=== PATIENT | female | born 1975 | race Caucasian/White ===

== ENCOUNTER 2023-05-03 13:30 | Outpatient (CLI) | payer BC, SELFPAY ==
[2023-05-04 09:52] LABS: Chlamydia DNA Amplified* NOT DETECTED (No Detected); GC DNA Amplified* NOT DETECTED (No Detected)
== END 2023-05-03 13:31 | disposition home or self-care (01) ==
LOC: NFLDREF 13:37
PROVIDERS: Visit Provider Obstetrics & Gynecology
DX: N93.9 Abnormal uterine and vaginal bleeding, unspecified (principal); Z11.3 Encounter for screening for infections with a predominantly sexual mode of transmission
CPT/HCPCS: 87491; 87591

== ENCOUNTER 2023-06-26 06:05 | Day surgery (SDC) | payer BC, SELFPAY ==
[2023-06-26] MEDS: SODIUM CHLORIDE 0.9 % (FLUSH) 10 ML SYRINGE IVF (06:20)
[2023-06-26] MEDS: LACTATED RINGERS 1000 ML 1,000 ML 100 ML IV (06:20)
[2023-06-26 06:23] LABS: Ur HCG Qualitative* Negative (Negative)
[2023-06-26 06:28] VITALS: BP 138/92; PULSE 78; RESP 16; TEMP 36.6; O2SAT 96; BMI 23.3
--- NOTE | 2023-06-26 07:08 | P.GYNHP_ITS ---
REGISTERED MAIL CLERK: H&P: HPI Surgical History of Present Illness Time Seen by Provider: 07:00 Date Seen: 06/26/23 Last H&P: History & Physical 06/26/23 07:08 Narrative: Savana Burk is a 48 year old female seen in pre-op prior to planned IUD Removal, Hysteroscopy, Dilation and Curettage and Amaya Endometrial Ablation. Past medical history is notable for anxiety. She has no chest pain, dyspnea, nausea/vomiting, bowel or bladder concerns today. We discussed surgery in detail - including risks of increased vaginal bleeding (switching from mirena to Amaya ablation), abnormal vaginal discharge for several months, post-procedure bleeding, infection, damage to surrounding structures, uterine perforation and post-op pain. Written consent obtained. Endometrial biopsy on 05/03/2023: Scant atrophic endometrium, no hyperplasia/atypia/malignancy Pap on 05/03/2023: NILM PFSH PFSH Social History Smoking Status: Never smoker How often do you have a drink containing alcohol: never AUDIT-C Alcohol total score: 0 Non-prescribed substance use: denies use Caffeine: Yes Meds Home Medications and Allergies Home Medications Medication Instructions Recorded Confirmed Type fluoxetine 40 mg capsule 40 mg PO DAILY 04/23/23 06/26/23 History lorazepam 0.5 mg tablet (Ativan) 0.5 mg buccal TID PRN 06/22/23 06/26/23 History trazodone 100 mg tablet 100 mg PO QPM 06/22/23 06/26/23 History Allergies Allergy/AdvReac Type Severity Reaction Status Date / Time Penicillins Allergy Verified 06/26/23 06:26 REGISTERED MAIL CLERK - Exam Physical Exam: Vital signs: Temp Pulse Resp BP Pulse Ox O2 Del Method 97.8 F 78 16 138/92 H 96 Room Air 06/26/23 06:28 06/26/23 06:28 06/26/23 06:28 06/26/23 06:28 06/26/23 06:28 06/26/23 06:28 Narrative: Physical exam: General: No acute distress Psych: Alert and oriented x3, full affect Heart: Regular rate and rhythm, no murmur rub or gallop Lungs: Clear to auscultation bilaterally Assessment and Plan Assessment and plan (1) Abnormal uterine bleeding: Status: Acute Plan Plan to proceed with IUD removal, hysteroscopy, dilation curettage and endometrial ablation. Written consent obtained. Discussed return precautions and post-op expectations in detail. - Urine test negative today. - No antibiotics indicated - No concerns on review of systems, physical exam within normal limits. - Contraception plan: partner vasectomy.
[2023-06-26 08:15] VITALS: BP 140/97; PULSE 71; RESP 16; TEMP 36.4; O2SAT 97
--- NOTE | 2023-06-26 08:18 | W.ANESCHARGE ---
Anesthesia Charges Start Date/Time Anesthesia Start Date: 06/26/23 Anesthesia Start Time: 07:20 Stop Date/Time Anesthesia Stop Date: 06/26/23 Anesthesia Stop Time: 08:21
[2023-06-26 08:30] VITALS: BP 140/88; PULSE 69; RESP 16; O2SAT 97
--- NOTE | 2023-06-26 08:33 | P.GYNPRC_ITS ---
Procedure Note Time Seen by Provider: 08:15 Date of procedure: 06/26/23 Pre-op diagnosis: Abnormal uterine bleeding Post-op diagnosis: same Procedure: IUD removal, hysteroscopy, dilation curettage and endometrial ablation Anesthesia: MAC and local Complications: None Surgeon: Jareth Viera MD Estimated blood loss (mL): 10 IV fluids (mL): 800 Urine Output (mL): 75 Pathology: specimen obtained, sent to pathology Condition: stable Disposition: same day Findings: IUD strings visualized at cervical os, removed intact Proliferative appearing endometrium, no focal anomaly Bilateral tubal ostia visualized Procedure Description: After obtaining informed consent, the patient was taken to the operating room where she received monitored anesthesia care. She was prepared and draped in the normal sterile fashion, in the dorsal lithotomy position. In and out catheterization performed, 75 mL of urine. An open-sided bivalve speculum was introduced into the vagina and the cervix visualized. IUD strings visualized, grasped with a ring forceps and removed intact with gentle traction. The anterior lip of the cervix was grasped with a single-tooth tenaculum for traction. A paracervical block was then administered using a total of 10 mL of 0.5% Marcaine. The uterus was gently sounded. Sound length was 8 cm. The cervix length was determined to be 3 cm using Hegar dilators, yielding a uterine cavity length of 5 cm. The cervix was gently dilated to accommodate hysteroscope. The hysteroscope was then advanced under direct visualization through the cervix into the uterine cavity. Sterile normal saline was used as distending medium. The uterine cavity was carefully inspected with the findings noted above. Global sampling performed with TruClear soft tissue blade. The hysteroscope was then removed. The Amaya device was then set to a cavity length of 5 cm, i nserted through the cervical os into the uterine cavity to the level of the fundus, and deployed. Integrity of array opening confirmed with indicator in green zone. The device was sealed against the cervix. The safety checks were then passed x2 and the 2-minute treatment cycle initiated. Following completion of the treatment cycle, the Amaya device was removed. The hysteroscope was advanced again into the uterine cavity and the uterine cavity inspected. A good ablation was noted from the internal os to fundus and to the cornua bilaterally. Pictures were taken for documentation purposes. The hysteroscope was removed. The tenaculum was removed, hemostasis noted at tenaculum site. All instruments were then removed. The patient tolerated the procedure well. Sponge, lap, needle, and instrument counts reported as correct x2. The patient was taken to the recovery room awake in a stable condition.
[2023-06-26] MEDS: ACETAMINOPHEN 500 MG TABLET 1000 MG PO (08:35)
[2023-06-26 08:45] VITALS: BP 146/95; PULSE 65; RESP 16; O2SAT 97
[2023-06-26 09:00] VITALS: BP 145/100; PULSE 67; RESP 16; O2SAT 97
--- NOTE | 2023-06-26 09:53 | W.ANESCHARGE ---
Anesthesia Charges Start Date/Time Anesthesia Start Date: 06/26/23 Anesthesia Start Time: 07:20 Stop Date/Time Anesthesia Stop Date: 06/26/23 Anesthesia Stop Time: 08:21
== END 2023-06-26 09:24 | disposition home or self-care (01) ==
PROVIDERS: PCP Family Medicine; Visit Provider Obstetrics & Gynecology
PROC: 0UF98ZZ Fragmentation in Uterus, Via Natural or Artificial Opening Endoscopic (ICD-10-PCS; CPT 58563; principal; 2023-06-26 07:15)
DX: N93.8 Other specified abnormal uterine and vaginal bleeding (principal); Z30.432 Encounter for removal of intrauterine contraceptive device
CPT/HCPCS: 58563; 58301; 00952; 81025; 88305; A9270; J1100; J1885; J2250; J2405; J2704; J3010; J7120